=== PATIENT | female | born 1965 | race Caucasian/White ===

== ENCOUNTER → 2016-08-18 | Outpatient (CLI) | payer BC ==
[2016-08-18 07:00] LABS: BASOPHILS % (AUTO) 0 % (0-2); EOSINOPHILS # (AUTO) 0.2 10^3uL; EOSINOPHILS % (AUTO) 4 % (0-4); LYMPHOCYTES # (AUTO) 1.3 X10^3; MEAN CORPUSCULAR VOLUME 89 FL (80-100); MEAN PLATELET VOLUME 9.4 FL (6.0-9.5); MONOCYTES # (AUTO) 0.5 X10^3; MONOCYTES % (AUTO) 8 % (3-11); NEUTROPHILS # (AUTO) 4.2 X10^3; NEUTROPHILS % (AUTO) 68 % (51-67); PLATELET COUNT 205 10^3uL (150-450); WHITE BLOOD COUNT 6.25 10^3uL (4.0-11.0)
[2016-08-18 07:01] LABS: MEAN CORPUSCULAR HGB CONC 35.8 g/dL (31.0-37.0)
[2016-08-18 07:55] LABS: ALBUMIN 4.4 g/dL (3.4-5.0); ANION GAP 18.5 MEQ/L (3-15); CALCULATED IONIZED CALCIUM 4.1 mg/dL (3.8-4.6); TOTAL PROTEIN 7.5 g/dL (6.4-8.5)
== END ==
LOC: LAB 06:47
PROVIDERS: ATTEND Internal Medicine
DX: I10 Essential (primary) hypertension (principal); E03.8 Other specified hypothyroidism; K58.9 Irritable bowel syndrome, unspecified; E78.00 Pure hypercholesterolemia, unspecified
CPT/HCPCS: 36415; 80053; 80061; 84443; 85025

== ENCOUNTER → 2016-08-25 | Outpatient (CLI) | payer BC | LOC: RAD 12:50 | PROVIDERS: ATTEND Internal Medicine | DX: Z12.31 Encounter for screening mammogram for malignant neoplasm of breast (principal); E04.1 Nontoxic single thyroid nodule | CPT/HCPCS: 76536; G0202 ==

== ENCOUNTER → 2016-09-11 | Outpatient (CLI) | payer BC ==
[2016-09-11 12:53] LABS: BASOPHILS % (AUTO) 0 % (0-2); EOSINOPHILS # (AUTO) 0.2 10^3uL; EOSINOPHILS % (AUTO) 3 % (0-4); LYMPHOCYTES # (AUTO) 1.1 X10^3; MEAN CORPUSCULAR HGB CONC 34.4 g/dL (31.0-37.0); MEAN CORPUSCULAR VOLUME 92 FL (80-100); MEAN PLATELET VOLUME 9.7 FL (6.0-9.5); MONOCYTES # (AUTO) 0.5 X10^3; MONOCYTES % (AUTO) 8 % (3-11); NEUTROPHILS # (AUTO) 4.7 X10^3; NEUTROPHILS % (AUTO) 71 % (51-67); PLATELET COUNT 194 10^3uL (150-450); WHITE BLOOD COUNT 6.53 10^3uL (4.0-11.0)
[2016-09-11 12:57] LABS: MEAN CORPUSCULAR HEMOGLOBIN 31.5 PG (26.0-34.0)
== END ==
LOC: LAB 12:05
PROVIDERS: ATTEND Internal Medicine
DX: M79.1 Myalgia (principal); G43.009 Migraine without aura, not intractable, without status migrainosus
CPT/HCPCS: 36415; 85025; 86140

== ENCOUNTER → 2016-11-18 | Outpatient (CLI) | payer BC ==
[~2016-11-18] MED LIST: BISO1TAB38 PO; BISO1TAB40 PO; CHOL50005 PO; CYCL-265 PO; ESTR1TAB24 PO; ESTR1TAB37 PO; FEXO180T PO; FLUC100T6 PO; HYDR-3708 PO; HYDR-3754 PO; HYDR-3811 PO; HYDR2TAB14 PO; LACT10SO6 PO; LEVO137T19 PO; LEVO175T2 PO; LORA-407 PO; LVF500T PO; MAGN400T26 PO; METO5TAB75 PO; MIRALAX 17 GM P17 GM PO; MTC5U10 PO; MTC5V480 PO; ONDA4TAB11 PO; ONDAN4ODT PO; POTA10CA43 PO; TOPI100T38 PO; [UNRECOGNIZED DRUG - OTHER]
== END ==
LOC: LAB 09:57
PROVIDERS: ATTEND Internal Medicine
DX: E03.8 Other specified hypothyroidism (principal)
CPT/HCPCS: 36415; 84439; 84443